=== PATIENT | male | born 1955 | race Caucasian/White ===

== ENCOUNTER 2024-10-29 12:44 | Inpatient (IN) | payer MEDICAID, MEDICARE ==
[2024-10-29 13:32] LABS: APPEARANCE,URINE CLEAR (CLEAR); BILIRUBIN,URINE NEGATIVE (NEGATIVE); COLOR,URINE YELLOW; GLUCOSE,URINE NEGATIVE (NEGATIVE); KETONES,URINE NEGATIVE (NEGATIVE); LEUKOCYTE ESTERASE,URINE NEGATIVE (NEGATIVE); NITRITE,URINE NEGATIVE (NEGATIVE); OCCULT BLOOD,URINE NEGATIVE (NEGATIVE); PROTEIN,URINE 30 mg/dL (NEGATIVE); UROBILINOGEN,URINE 0.2 E.U./dL (0.2-1.0)
[2024-10-29 13:33] LABS: AMPHETAMINES SCREEN, URINE NEGATIVE (NEGATIVE); BARBITURATE SCREEN,URINE NEGATIVE (NEGATIVE); BENZODIAZEPINES SCREEN,URINE NEGATIVE (NEGATIVE); METHADONE SCREEN, URINE NEGATIVE (NEGATIVE); METHAMPHETAMINES SCREEN, URINE NEGATIVE (NEGATIVE); OXYCODONE SCREEN,URINE NEGATIVE (NEGATIVE); RBC,URINE 0-5 /HPF; SQUAMOUS EPITHELIAL CELLS,UR OCCASIONAL /HPF; THC SCREEN,URINE 50 NG/ML POSITIVE (NEGATIVE); WBC,URINE 0-5 /HPF
[2024-10-29 13:33] LABS: BASOPHILS ABSOLUTE AUTO 0.06 K/uL (0.02-0.10); BASOPHILS PERCENT AUTO 0.8 % (0.0-0.5); EOSINOPHILS ABSOLUTE AUTO 0.37 K/uL (0.04-0.40); EOSINOPHILS PERCENT AUTO 4.9 % (1.0-5.0); HEMATOCRIT 38.8 % (40.0-54.0); HEMOGLOBIN 11.7 g/dL (13.0-18.0); LYMPHOCYTES ABSOLUTE AUTO 1.26 K/uL (1.50-4.00); LYMPHOCYTES PERCENT AUTO 16.7 % (20.0-40.0); MEAN CORPUSCULAR HEMOGLOBIN 22.6 pg (27.0-32.0); MEAN CORPUSCULAR HGB CONC 30.2 g/dL (31.0-35.0); MEAN CORPUSCULAR VOLUME 75 fL (76-96); MEAN PLATELET VOLUME 9.3 fL (6.0-10.0); MONOCYTES ABSOLUTE AUTO 0.73 K/uL (0.20-0.80); MONOCYTES PERCENT AUTO 9.7 % (3.0-10.0); NEUTROPHILS ABSOLUTE AUTO 5.12 K/uL (2.00-7.50); NEUTROPHILS PERCENT AUTO 67.9 % (45.0-70.0); PLATELET COUNT,PLT 176 K/uL (150-400); RED BLOOD CELL COUNT 5.18 M/uL (4.50-6.50); RED CELL DISTRIBUTION WIDTH 17.8 % (11.0-16.0); WHITE BLOOD CELL COUNT,WBC 7.5 K/uL (4.0-11.0)
[2024-10-29 13:53] LABS: A/G RATIO 0.8 (0.8-2.0); ALBUMIN 3.6 g/dL (3.4-5.0); ANION GAP 11.9 mmol/L (5.0-15.0); BILIRUBIN TOTAL 0.6 mg/dL (0.0-1.0); BUN/CREATININE RATIO 13.5 (6-25); CALCIUM 9.1 mg/dL (8.5-10.1); CARBON DIOXIDE,CO2 28.2 mmol/L (21.0-32.0); CREATININE 1.04 mg/dL (0.70-1.30); EST CRCL DRUG DOSING (CG) 63.94 mL/min; POTASSIUM,K 4.1 mmol/L (3.5-5.1); PROTEIN TOTAL,TP 8.2 g/dL (6.4-8.2)
== END 2024-10-30 16:16 | disposition home or self-care (01) | DRG 57 ==
LOC: LB.ED 12:44 → LB.MS 15:03
PROVIDERS: ADMIT Surgery; ATTEND Surgery
DX: G30.9 Alzheimer's disease, unspecified (principal); M19.90 Unspecified osteoarthritis, unspecified site; F02.80 Dementia in other diseases classified elsewhere, unspecified severity, without behavioral disturbance, psychotic disturbance, mood disturbance, and anxiety; F15.10 Other stimulant abuse, uncomplicated
CPT/HCPCS: 36415; 70450; 71045; 80053; 80307; 81001; 85025; 93005; 97166-GO; 99285

== ENCOUNTER 2025-03-02 09:58 | Inpatient (IN) | payer MEDICARE ==
[2025-03-02 11:32] LABS: MEAN PLATELET VOLUME 8.9 fL (6.0-10.0); PLATELET COUNT,PLT 437.0 K/uL (150-400); RED BLOOD CELL COUNT 5.61 M/uL (4.50-6.50); RED CELL DISTRIBUTION WIDTH 17.8 % (11.0-16.0); WHITE BLOOD CELL COUNT,WBC 11.9 K/uL (4.0-11.0)
[2025-03-02 12:05] LABS: A/G RATIO 0.7 (0.8-2.0); ALANINE AMINOTRANSFERASE,ALT 32.0 U/L (12-78); ASPARTATE AMNIOTRANSFERASE,AST 43.0 U/L (15-37); BILIRUBIN TOTAL 1.8 mg/dL (0.0-1.0); BLOOD UREA NITROGEN,BUN 14.0 mg/dL (8-26); CARBON DIOXIDE,CO2 29.3 mmol/L (21.0-32.0); CHLORIDE,CL 102.0 mmol/L (98-107); CREATININE 0.9 mg/dL (0.70-1.30); EST CRCL DRUG DOSING (CG) 71.4 mL/min; ESTIMATED GFR 92.0 mL/min (>60); GLUCOSE RANDOM 95.0 mg/dL (74-100); POTASSIUM,K 3.8 mmol/L (3.5-5.1); PROTEIN TOTAL,TP 8.4 g/dL (6.4-8.2); SODIUM,NA 141.0 mmol/L (136-145); TROPONIN I HIGH SENSITIVITY 7.5 pg/ml (<=60.4)
[2025-03-02] MEDS: Bacitracin Oint 1 GM U/D Packet TOP ONE (13:32)
[2025-03-02 14:54] LABS: APPEARANCE,URINE SLIGHTLY CLOUDY (CLEAR); GLUCOSE,URINE NEGATIVE (NEGATIVE); OCCULT BLOOD,URINE TRACE-INTACT (NEGATIVE)
[2025-03-02 15:01] LABS: FINE GRANULAR CASTS,URINE FEW /HPF
[2025-03-02] MEDS: Sodium Chloride 0.9% 10 ML Syringe FLUSH PRN (20:04)
[2025-03-03] MEDS: Lactobacillus Acidophilus/Lactobacillus Sporogenes (Probiotic) Tab PO SCH (07:37)
== END 2025-03-03 16:30 | disposition home or self-care (01) | DRG 690 ==
LOC: LB.ED 09:58 → LB.MS 15:40 → UNDOADMIN 16:10 → LB.MS 16:10
PROVIDERS: ADMIT Surgery; ATTEND Surgery
DX: N39.0 Urinary tract infection, site not specified (principal); R53.81 Other malaise; E86.0 Dehydration; I10 Essential (primary) hypertension; H91.90 Unspecified hearing loss, unspecified ear; W19.XXXA Unspecified fall, initial encounter; H54.7 Unspecified visual loss; S09.90XA Unspecified injury of head, initial encounter; S00.83XA Contusion of other part of head, initial encounter; Z79.890 Hormone replacement therapy; Z87.81 Personal history of (healed) traumatic fracture; W18.30XA Fall on same level, unspecified, initial encounter; Y92.89 Other specified places as the place of occurrence of the external cause
CPT/HCPCS: 36415; 70450; 72125; 80053; 81001; 83735; 84484; 85027; 93005; 93010; 97161-GP; 99222; 99239; 99285; A9270-GY; J1650; J7030

== ENCOUNTER 2025-04-14 16:23 | Emergency (ER) | payer MEDICARE | END 2025-04-14 17:25 | disposition home or self-care (01) | LOC: LB.ED 16:23 | DX: G31.84 Mild cognitive impairment of uncertain or unknown etiology (principal) | CPT/HCPCS: 99284 ==

== ENCOUNTER 2025-04-21 18:43 | Emergency (ER) | payer MEDICARE ==
[2025-04-21] MEDS ORDERED: Sodium Chloride 0.9% 10 ML Syringe FLUSH PRN (19:27)
[2025-04-21 20:09] LABS: MEAN PLATELET VOLUME 9.0 fL (6.0-10.0); PLATELET COUNT,PLT 340.0 K/uL (150-400); RED BLOOD CELL COUNT 4.94 M/uL (4.50-6.50); RED CELL DISTRIBUTION WIDTH 17.5 % (11.0-16.0); WHITE BLOOD CELL COUNT,WBC 7.7 K/uL (4.0-11.0)
[2025-04-21 20:14] LABS: BLOOD UREA NITROGEN,BUN 15.0 mg/dL (8-26); CARBON DIOXIDE,CO2 26.5 mmol/L (21.0-32.0); CHLORIDE,CL 105.0 mmol/L (98-107); CREATININE 0.87 mg/dL (0.70-1.30); EST CRCL DRUG DOSING (CG) 70.28 mL/min; ESTIMATED GFR 92.0 mL/min (>60); GLUCOSE RANDOM 92.0 mg/dL (74-100); POTASSIUM,K 4.3 mmol/L (3.5-5.1); SODIUM,NA 139.0 mmol/L (136-145)
[2025-04-21 20:31] LABS: APPEARANCE,URINE CLEAR (CLEAR); GLUCOSE,URINE NEGATIVE (NEGATIVE); OCCULT BLOOD,URINE TRACE-INTACT (NEGATIVE)
== END 2025-04-23 16:45 | disposition home or self-care (01) ==
LOC: LB.ED 18:43 → LB.MS 20:56 → UNDOADMOB 21:05
PROVIDERS: ADMIT Surgery; ATTEND Surgery
DX: R41.89 Other symptoms and signs involving cognitive functions and awareness (principal); R46.89 Other symptoms and signs involving appearance and behavior; E03.8 Other specified hypothyroidism
CPT/HCPCS: 36415; 80048; 81001; 83735; 84443; 85027; 96125; 96360; 99285; A9270; J7030; 99223; 99239; G0378

== ENCOUNTER 2025-04-27 10:08 | Emergency (ER) | payer MEDICARE ==
[2025-04-27] MEDS: Magnesium Citrate Solution 296 ML Bottle PO ONE ×2 (11:08→13:59)
[2025-04-27 14:00] VITALS: BP 142/75
[2025-04-27 16:17] VITALS: PULSE 75
== END 2025-04-27 15:37 | disposition home or self-care (01) ==
LOC: LB.ED 10:08
DX: K59.01 Slow transit constipation (principal); Z79.890 Hormone replacement therapy; Z79.899 Other long term (current) drug therapy
CPT/HCPCS: 74018; 99284; A9270; 99283

== ENCOUNTER 2025-05-17 10:15 | Emergency (ER) | payer MEDICARE ==
[2025-05-17] MEDS: Magnesium Citrate Solution 296 ML Bottle PO ONE (11:07)
[2025-05-17 15:01] VITALS: BP 156/77; PULSE 71
== END 2025-05-17 15:30 | disposition home or self-care (01) ==
LOC: LB.ED 10:15
DX: K59.00 Constipation, unspecified (principal); E03.9 Hypothyroidism, unspecified
CPT/HCPCS: 99282; A9270-GY